=== PATIENT | male | born 1970 | race Caucasian/White ===

== ENCOUNTER 2023-11-27 17:05 | Emergency (ER) | payer BC, SELFPAY ==
[2023-11-27 17:06] VITALS: BP 179/100; PULSE 99; RESP 15; TEMP 36.2; O2SAT 95; BMI 36.2
--- NOTE | 2023-11-27 17:15 | RAD_ITS ---
EXAM: XR LEFT KNEE COMPLETE, 4 OR MORE VIEWS CLINICAL INDICATION: PAIN S/P HITTING KNEE ON DOOR x2 DAYS AGO TECHNIQUE: Four or more views of the left knee. COMPARISON: No relevant prior studies available. FINDINGS: BONES/JOINTS: Unremarkable. No acute fracture. No subluxation. Normal alignment. Preservation of the joint space. No sclerotic or destructive changes observed. SOFT TISSUES: Unremarkable. No soft tissue swelling or gas. No radiopaque foreign body. RAD/Knee 4 or More Views IMPRESSION: Negative left knee x-rays. Electronically Signed: Tim Camargo MD at 17:36 EDT ,
--- NOTE | 2023-11-27 17:17 | EDS_ITS ---
HPI <MONIKA Gomez - Last Filed: 11/27/23 18:10> History of Present Illness Chief Complaint: Lower Extremity Injury Narrative Narrative: 2 days ago patient was getting out of his vehicle when the car door struck his left knee. He has had pain with ambulation since then that seemed worse today while he was going down the stairs. He denies any locking or clicking of the joint and denies swelling or weakness or numbness or tingling. No blood thinners. PFSH <MONIKA Gomez - Last Filed: 11/27/23 18:10> PFSH Allergy/AdvReac Type Severity Reaction Status Date / Time ibuprofen Allergy Severe Anaphylaxis Verified 11/27/23 17:10 Social History Smoking Status: Never smoker ROS <MONIKA Gomez - Last Filed: 11/27/23 18:10> ROS ED ROS Narrative Neuro: Negative for motor/sensory dysfunction. Musc: Positive for left knee pain, trauma. EXAM <MONIKA Gomez Last Filed: 11/27/23 18:10> Physical Exam Narrative Exam Narrative: CONST: Patient sitting in no acute distress. EYES: Normal inspection. SKIN: Color normal, no rash, warm, dry, intact. EXTREMITIES: Normal appearance of left lower extremity. Tender over the patella, no medial or lateral joint line tenderness. Negative anterior/posteri or drawer, negative varus valgus stress, negative other Glauthier's. Normal knee extension, 5/5 strength in hip flexion, knee flexion/extension, DF/PF. Normal sensation. 2+ DP pulse. NEURO: Alert and answering questions appropriately. PSYCH: Normal affect. Const Vital Signs: 11/27/23 17:06 11/27/23 17:31 Temperature 97.1 F L 97.6 F L Temperature Source Temporal Pulse Rate 99 80 Respiratory Rate 15 17 Blood Pressure 179/100 H 188/106 H Blood Pressure Mean 126 133 Pulse Ox 95 99 Oxygen Delivery Method Room Air <Dr. Reinaldo Huizar DO - Last Filed: 11/27/23 23:58> Physical Exam Const Vital Signs: 11/27/23 17:06 11/27/23 17:31 Temperature 97.1 F L 97.6 F L Temperature Source Temporal Pulse Rate 99 80 Respiratory Rate 15 17 Blood Pressure 179/100 H 188/106 H Blood Pressure Mean 126 133 Pulse Ox 95 99 Oxygen Delivery Method Room Air MDM <MONIKA Gomez - Last Filed: 11/27/23 18:10> [facility] Narrative Medical decision making narrative: Patient has left knee pain after striking it on his car door 3 days ago. There is effusion normal extension and is neurovascular intact. Stairs. On exam there is no evidence of ligamentous or meniscal injury and is ambulatory. X-ray shows no acute findings. Advised ice, Tylenol and, and provided orthopedic follow-up if it does not improve. He was discharged in stable condition. Interventions / MDM: Differential diagnosis: Knee contusion, patellofemoral chondritis Diagnosis considered but do not suspect: Fracture however x-ray negative My EKG interpretation: N/A Imaging independently reviewed and interpreted by myself: 4 view x-ray left knee: No fracture or dislocation noted. External documents reviewed: N/A Test considered but not ordered:N/A ED course: Attending note: Patient seen and evaluated with school bus technician. I perform my own [id number] evaluation. I agree with the plan of work-up. Presents left knee pain injury 2 days ago. Was closing the door when he bumped his knee into the door. There is no swelling. When he goes up and down or does steps. No paresthesias. Exam very small scab mid patellar no bony tenderness positive patellar grind negative varus and valgus. 4 view x-ray left knee interpreted myself no fracture noted. Exam with patellofemoral chondritis. Allergies to ibuprofen and anaphylaxis therefore he will continue his Tylenol. Discussed should have improvement with time. All questions were answered. Re-evaluation: stable Disposition discussed with patient/family/significant other: Patient significant other Case discussed with consulting clinician: N/A This note was generated with [employer] dictation software. It may contain incorrect words, spelling, and punctuation that were not noted in checking the note before signing. Radiography Diagnostic Testing: Clinical Impression(s) from Imaging Studies Knee X-Ray 11/27/23 17:15 IMPRESSION: Negative left knee x-rays. Electronically Signed: Tim Camargo MD at 17:36 EDT , <Dr. Reinaldo Huizar DO - Last Filed: 11/27/23 23:58> MDM MDM Narrative Medical decision making narrative: Interventions / MDM: Differential diagnosis: Knee contusion, patellofemoral chondritis Diagnosis considered but do not suspect: Fracture however x-ray negative My EKG interpretation: N/A Imaging independently reviewed and interpreted by myself: 4 view x-ray left knee: No fracture or dislocation noted. External documents reviewed: N/A Test considered but not ordered:N/A ED course: Attending note: Patient seen and evaluated with school bus technician. I perform my own [id number] evaluation. I agree with the plan of work-up. Presents left knee pain injury 2 days ago. Was closing the door when he bumped his knee into the door. There is no swelling. When he goes up and down or does steps. No paresthesias. Exam very small scab mid patellar no bony tenderness positive patellar grind negative varus and valgus. 4 view x-ray left knee interpreted myself no fracture noted. Exam with patellofemoral chondritis. Allergies to ibuprofen and anaphylaxis therefore he will continue his Tylenol. Discussed should have improvement with time. All questions were answered. Re-evaluation: stable Disposition discussed with patient/family/significant other: Patient significant other Case discussed with consulting clinician: N/A This note was generated with [employer] dictation software. It may contain incorrect words, spelling, and punctuation that were not noted in checking the note before signing. Radiography Diagnostic Testing: Clinical Impression(s) from Imaging Studies Knee X-Ray 11/27/23 17:15 IMPRESSION: Negative left knee x-rays. Electronically Signed: Tim Camargo MD at 17:36 EDT Reading Location ID and State: [facility] / [place] , Service support , Discharge Plan Triage Chief Complaint: Lower Extremity Injury ED Midlevel Provider: Sommer Brown ED Provider: Reinaldo Huizar Dx/Rx/DC Orders Clinical Impression: Acute pain of left knee, Patellofemoral chondrosis of left knee Instructions: Patellofemoral Pain Syndrome Primary Care Provider: Horace Bunch Referrals: Damir Ruiz DO [Med Staff - Active Staff] - Horace Bunch DO [Primary Care Provider] - Activity Restrictions/Additional Instructions: Ice and take Tylenol every 6 hours as needed. If not improving call the orthopedic doctor for an appointment. Print Language: Amharic Disposition Disposition: Home, Self Care Discharge Date/Time: 11/27/23 17:33
[2023-11-27 17:31] VITALS: BP 188/106; PULSE 80; RESP 17; TEMP 36.4; O2SAT 99
--- NOTE | 2023-11-27 17:33 | ED.RN ---
Discussed BP with zoie Tate for d/c.
== END 2023-11-27 17:33 | disposition home or self-care (01) ==
PROVIDERS: Emergency Provider Emergency Medicine; PCP Preventive Medicine Occupational Medicine; Visit Provider Emergency Medicine
DX: M25.562 Pain in left knee (principal); M22.42 Chondromalacia patellae, left knee
CPT/HCPCS: 73564; 99282